=== PATIENT | female | born 1980 | race Caucasian/White ===

== ENCOUNTER → 2016-11-18 | Outpatient (CLI) | payer MEDICARE, OTHER ==
--- NOTE | 2016-11-20 07:53 | MR ---
EXAMINATION TYPE: MR lumbar spine wo/w con DATE OF EXAM: 11/18/2016 COMPARISON: NONE HISTORY: Chronic low back pain since 2010 TECHNIQUE: Multiplanar, multisequence images of the lumbar spine were acquired utilizing 7.5 mL intravenous Gada vist gadolinium contrast. T12-L1: Normal disc appearance without desiccation. No herniation, protrusion or disc bulging. No can al stenosis is present. Foramina are patent bilaterally. L1-L2: There is flattening of the disc contour posteriorly and small broad-based disc bulge without n eural foraminal narrowing or spinal canal stenosis present. Disc signal is unremarkable. L2-L3: There is flattening of the disc contour posteriorly and small broad-based disc bulge without n eural foraminal narrowing or spinal canal stenosis present. Disc signal is unremarkable. L3-L4: There is flattening of the disc contour posteriorly and small broad-based disc bulge without n eural foraminal narrowing or spinal canal stenosis present. Disc signal is unremarkable. L4-L5: There is flattening of the disc contour posteriorly and small broad-based disc bulge without n eural foraminal narrowing or spinal canal stenosis present. Disc signal is unremarkable. L5-S1: Normal disc appearance without desiccation. No herniation, protrusion or disc bulging. No ca nal stenosis is present. Foramina are patent bilaterally. Lumbar segments are intact. No paraspinal masses are identified. Conus medullaris has a normal appe arance. Small vertebral body hemangioma seen at the right lateral margin of of S2. IMPRESSION: Mild degenerative disc disease with small disc bulges. No evidence of disc herniation, spinal canal s tenosis, or neural foraminal narrowing. Overall intervertebral disc signal is maintained.
== END ==
LOC: RADMRIMAIN 18:12
PROVIDERS: ATTEND Psychiatry & Neurology Pain Medicine
DX: M54.5 Low back pain (principal); M51.36 Other intervertebral disc degeneration, lumbar region
CPT/HCPCS: 72158; A9581

== ENCOUNTER → 2017-06-11 | Outpatient (CLI) | payer MEDICARE, OTHER ==
--- NOTE | 2017-06-11 11:34 | MR ---
EXAMINATION TYPE: MR cervical spine wo con DATE OF EXAM: 06/11/2017 COMPARISON: Previous exam 03/21/2011 MR cervical spine HISTORY: Cervicalgia TECHNIQUE: Multiplanar, multisequence images of the cervical spine were acquired. C2-C3: No evidence for degenerative disc disease. No disc bulge/herniation or protrusion. No Canal stenosis. Foramina are patent bilaterally. C3-C4: No evidence for degenerative disc disease. No disc bulge/herniation or protrusion. No Canal stenosis. Foramina are patent bilaterally. C4-C5: No evidence for degenerative disc disease. No disc bulge/herniation or protrusion. No Canal stenosis. Foramina are patent bilaterally. C5-C6: Posterior disc bulge is present possibly contacting the anterior cervical cord. No significant foraminal encroachment, only mild central stenosis is present and is stable. C6-C7: Posterior broad-based disc bulge effaces the anterior thecal sac, lateral extension of endplat e disc complex causes only minimal foraminal encroachment, no significant central stenosis. C7-T1: No evidence for degenerative disc disease. No disc bulge/herniation or protrusion. No Canal stenosis. Foramina are patent bilaterally. Cervical segments are intact. There is normal alignment. Cervical spinal cord is of normal signal. Craniovertebral junction relationships are within normal limits. Cervical vertebral bodies show sta ble alignment, height, bone marrow signal, there is spondylosis as noted on prior exam C5-6 and C6-7 associated disc height loss, loss of disc signal, endplate discogenic marrow signal change. There is extensive inflammatory change noted incidentally within the sinuses. IMPRESSION: Degenerative disc disease does not show significant change. Extensive sinus disease.
== END ==
LOC: RADMRIMAIN 08:58
PROVIDERS: ATTEND Psychiatry & Neurology Pain Medicine
DX: M50.30 Other cervical disc degeneration, unspecified cervical region (principal)
CPT/HCPCS: 72141